=== PATIENT | male | born 1975 | race Caucasian/White ===

== ENCOUNTER 2017-01-06 14:24 | Emergency (ER) | payer MEDICAID, OTHER ==
[~2017-01-06] VITALS: Ht 165.1 cm; Wt 75.5 kg
[2017-01-06 14:27] VITALS: Ht 165.1 cm; Wt 75.5 kg
[2017-01-06] MEDS ORDERED: morphine 4 MG/ML VIAL IV STA (15:25)
[2017-01-06] MEDS ORDERED: ONDANSETRON 4 MG INJ IV STA (15:25)
[2017-01-06 15:56] VITALS: BP 113/98; PULSE 57; RESP 18
[2017-01-06 16:05] LABS: BASOPHILS % 0.2 % (0.0-2.0); EOSINOPHILS # 0.2 10^3/ul (0.0-0.5); EOSINOPHILS % 1.6 % (0.0-7.0); HEMATOCRIT 42.2 % (42.0-52.0); HEMOGLOBIN 14.7 g/dl (14.0-18.0); LYMPHOCYTES # 2.7 10^3/ul (0.8-2.9); MEAN CORPUSCULAR HEMOGLOBIN 32.3 pg (29.0-33.0); MEAN CORPUSCULAR HGB CONC 34.8 g/dl (32.0-37.0); MEAN CORPUSCULAR VOLUME 92.7 fl (82.0-101.0); MONOCYTE # 0.6 10^3/ul (0.3-0.9); MONOCYTES % 6.8 % (0.0-11.0); NEUTROPHILS % 62.1 % (39.0-77.0); PLATELET COUNT 208 10^3/UL (140-415); RED BLOOD COUNT 4.55 10^6/ul (4.70-6.10); RED CELL DISTRIBUTION WIDTH 13.1 % (11.5-14.5); WHITE BLOOD COUNT 9.1 10^3/ul (4.8-10.8)
[2017-01-06 16:23] LABS: ALBUMIN 4.3 g/dl (3.3-4.9); ALBUMIN/GLOBULIN RATIO 1.38; BILIRUBIN,INDIRECT 0.4 mg/dl (0-1.1); BILIRUBIN,TOTAL 0.4 mg/dl (0.2-1.3); CALCIUM 9.2 mg/dl (8.4-10.2); CREATININE 0.98 mg/dl (0.61-1.24); POTASSIUM 3.5 mmol/L (3.5-5.1); TOTAL PROTEIN 7.4 g/dl (6.1-8.1)
[2017-01-06 16:32] LABS: ADD UMIC YES; UR ASCORBIC ACID NEGATIVE (NEGATIVE); UR BILIRUBIN (Dip) NEGATIVE (NEGATIVE); UR BLOOD (Dip) NEGATIVE (NEGATIVE); UR CLARITY TURBID (CLEAR); UR COLOR YELLOW (YELLOW); UR GLUCOSE (Dip) NEGATIVE (NEGATIVE); UR KETONES (Dip) NEGATIVE (NEGATIVE); UR LEUKOCYTE ESTERASE (Dip) NEGATIVE Leu/ul (NEGATIVE); UR NITRITE (Dip) NEGATIVE (NEGATIVE); UR RBC 0 /HPF (0-5); UR SPECIFIC GRAVITY (Dip) 1.021 (1.003-1.030); UR TOTAL PROTEIN (Dip) NEGATIVE (NEGATIVE); UR UROBILINOGEN (Dip) 2+ mg/dL (NEGATIVE)
[2017-01-06] MEDS ORDERED: IBUP-1542 PO (18:39)
[2017-01-06] MEDS ORDERED: BISM262O23 PO (18:39)
[2017-01-06] MEDS ORDERED: ONDA8TAB14 PO (18:39)
--- NOTE | 2017-01-06 19:00 | ERD ---
ER Documentation Chief Complaint Date/Time DATE: 01/06/17 TIME: 18:56 Chief Complaint RLQ pain with n/v no diarrhea for 2 days HPI This 41-year-old male complains of pain on the right side of the abdomen with some vomiting and diarrhea for last 2 days. Denies fevers. Denies blood. Denies urinary complaints. Points to the right mid abdomen says this is worse on the lower aspect over the upper aspect. ROS All systems reviewed and are negative except as per history of present illness. Medications Home Meds Active Scripts Bismuth Subsalicylate* (Pepto-Bismol*) 262 Mg/15 Ml Oral.susp, 15 ML PO Q3H Y for DIARRHEA for 4 Days, ML Prov:KARLA SRINIVASAN MD 01/06/17 Ibuprofen* (Motrin*) 600 Mg Tab, 600 MG PO Q6, #15 TAB Prov:KARLA SRINIVASAN MD 01/06/17 Ondansetron (Ondansetron Odt) 8 Mg Tab.rapdis, 8 MG PO Q6H Y for NAUSEA AND/OR VOMITING, #8 TAB Prov:KARLA SRINIVASAN MD 01/06/17 Allergies Allergies: Coded Allergies: No Known Allergy (Unverified , 01/06/17) PMhx/Soc Medical and Surgical Hx: pt denies Medical Hx, pt denies Surgical Hx Hx Alcohol Use: Yes (occasionally) Hx Substance Use: No Hx Tobacco Use: No Smoking Status: Never smoker Physical Exam Vitals Vital Signs Date Time Temp Pulse Resp B/P Pulse Ox O2 Delivery O2 Flow Rate FiO2 01/06/17 15:56 57 18 113/98 98 Room Air 01/06/17 14:27 98.8 62 18 109/69 98 Physical Exam Const: []Alert, [id number]. Head: Atraumatic Eyes: Normal Conjunctiva ENT: Normal External Ears, Nose and Mouth. Neck: Full range of motion..~ No meningismus. Resp: Clear to auscultation bilaterally Cardio: Regular rate and rhythm, no murmurs Abd: Soft, Mild tenderness right mid abdomen. Possibly right lower tenderness as well. No Karimi sign. No rebound. non distended. Normal bowel sounds Skin: No petechiae or rashes Back: No midline or flank tenderness Ext: No cyanosis, or edema Neur: Awake and alert Psych: Normal Mood and Affect Result Diagram: 01/06/17 1548 01/06/17 1548 Results 24 hrs Laboratory Tests Test 01/06/17 15:48 White Blood Count 9.110^3/ul Red Blood Count 4.5510^6/ul Hemoglobin 14.7g/dl Hematocrit 42.2% Mean Corpuscular Volume 92.7fl Mean Corpuscular Hemoglobin 32.3pg Mean Corpuscular Hemoglobin Concent 34.8g/dl Red Cell Distribution Width 13.1% Platelet Count 15289^3/UL Mean Platelet Volume 10.0fl Neutrophils % 62.1% Lymphocytes % 29.0% Monocytes % 6.8% Eosinophils % 1.6% Basophils % 0.2% Nucleated Red Blood Cells % 0.0/100WBC Neutrophils # (Manual) 5.710^3/ul Lymphocytes # 2.710^3/ul Monocytes # 0.610^3/ul Eosinophils # 0.210^3/ul Basophils # 0.010^3/ul Nucleated Red Blood Cells # 0.010^3/ul Urine Color YELLOW Urine Clarity TURBID Urine pH 7.0 Urine Specific Kathleen 1.021 Urine Ketones NEGATIVEmg/dL Urine Nitrite NEGATIVEmg/dL Urine Bilirubin NEGATIVEmg/dL Urine Urobilinogen 2+mg/dL Urine Leukocyte Esterase NEGATIVELeu/ul Urine Microscopic RBC 0/HPF Urine Microscopic WBC 11/HPF Urine Hemoglobin NEGATIVEmg/dL Urine Glucose NEGATIVEmg/dL Urine Total Protein NEGATIVEmg/dl Sodium Level 140mmol/L Potassium Level 3.5mmol/L Chloride Level 104mmol/L Carbon Dioxide Level 29mmol/L Anion Gap 11 Blood Urea Nitrogen 13mg/dl Creatinine 0.98mg/dl Glucose Level 78mg/dl Calcium Level 9.2mg/dl Total Bilirubin 0.4mg/dl Direct Bilirubin 0.00mg/dl Indirect Bilirubin 0.4mg/dl Aspartate Amino Transf (AST/SGOT) 27IU/L Alanine Aminotransferase (ALT/SGPT) 57IU/L Alkaline Phosphatase 70IU/L Total Protein 7.4g/dl Albumin 4.3g/dl Globulin 3.10g/dl Albumin/Globulin Ratio 1.38 Lipase 70U/L Current Medications Medications (Trade) Dose Ordered Sig/Chandan Route PRN Reason Start Time Stop Time Status Last Admin Dose Admin Morphine Sulfate (morphine) 4 mg ONCE STAT IV 01/06/17 15:25 01/06/17 15:27 DC 01/06/17 15:43 Ondansetron HCl (Zofran Inj) 4 mg ONCE STAT IV 01/06/17 15:25 01/06/17 15:27 DC 01/06/17 15:43 Procedures/MDM Urine shows no acute abnormalities and CBC and CMP is normal. Patient is given morphine 4 mg IV and Zofran 4 mg IV. Given the uncertain cause a right lower quadrant abdominal pain she had abdomen pelvis were performed which was read as normal by the radiologist. Patient presents with vomiting diarrhea and right lower quadrant abdominal pain of uncertain etiology, possibly viral illness. Treated with Zofran ibuprofen and Pepto-Bismol at home and further observation and return precautions. The patient was stable with no new complaints during the ER course. Clinically, there is no current evidence to suggest meningitis, sepsis, acute abdomen, pneumonia, acute coronary syndrome, pulmonary embolism, or any other emergent condition appearing to require further evaluation or hospitalization. The patient should certainly return for any new or worsening symptoms per the aftercare instructions. They should otherwise follow-up with her primary care doctor for reevaluation this week. Departure Diagnosis: Primary Impression: Vomiting and diarrhea Additional Impression: Abdominal pain Abdominal location: right lower quadrant Qualified Code: R10.31 - Right lower quadrant abdominal pain Condition: Stable Patient Instructions: Abdominal Pain, Vomiting And Diarrhea, Nonspecific (Adult ) Additional Instructions: Examines normal hoy. Cheque otro vez con hogan doctor primario en el proximo oseguera or regresa para mas o nueva simptomas. probablamente un virus que dura 2-4 oseguera. cheque otro linda el proximo ramirez para mas simptomas- vomito, dolor, nancy, problemas con respirando, o con hogan doctor primario. KARLA SRINIVASAN MD Jan 06, 2017 19:00
--- NOTE | 2017-01-06 19:04 | RADRPT ---
PROCEDURE: CT ABDOMEN AND PELVIS WITHOUT CONTRAST: CLINICAL INDICATION: 41 years of age, male , right lower quadrant pain. COMPARISON: None available. TECHNIQUE: CT of the abdomen and pelvis was performed without intravenous contrast. Oral contrast wa s not administered prior to the examination. Coronal and sagittal reformatted images were obtained from the axial source images. Images were revi ewed on a high-resolution PACS workstation. Dose information: Based on a 32 cm phantom, the estimated radiation dose (CTDIvol mGy) for each seri es in this exam is 10.1. The estimated cumulative dose (DLP mGy-cm) is 571. One or more of the following dose reduction techniques were used: - Automated exposure control. - Adjustment of the mA and/or kV according to patient size. - Use of iterative reconstruction technique. FINDINGS: In the absence of intravenous contrast, the study constitutes a limited assessment of the solid orga ns, bowel and vessels. LUNG BASES: Linear atelectasis bilateral lung bases. ABDOMEN/PELVIS: Liver: Normal noncontrast appearance. Gallbladder: Contracted Bile ducts: No intrahepatic or extrahepatic biliary duct dilatation. Spleen: Normal noncontrast appearance. Pancreas: Normal noncontrast appearance. Adrenal glands: Normal noncontrast appearance. Kidneys and ureters: 1 cm hypodensity superior pole right kidney likely represents a cyst. Kidneys a re otherwise normal. Negative for urinary calculi or hydronephrosis. Aorta and IVC: Normal noncontrast appearance. Lymph nodes: Normal noncontrast appearance. Gastrointestinal tract: Stomach is moderately distended from a recent meal. Otherwise normal. Appendix: Normal Bladder: Normal noncontrast appearance. Pelvic Organs: Prostate gland and seminal vesicles are unremarkable. Peritoneal cavity: No free fluid or free intraperitoneal air. Abdominal wall: Normal noncontrast appearance. BONES: Musculoskeletal: Mild degenerative changes in lower lumbar spine. No suspicious bone lesions. IMPRESSION: Unremarkable CT of the abdomen, and pelvis without contrast. Cause for abdominal pain is not evident RPTAT: HCTS Physician Misael Date Time Electronically viewed and signed by Physician Misael on 01/06/2017 18:09 CS/
== END 2017-01-06 19:31 | disposition home or self-care (01) ==
LOC: FTE 14:24
DX: R11.10 Vomiting, unspecified (principal); R19.7 Diarrhea, unspecified
CPT/HCPCS: 36415; 74176; 80053; 81001; 83690; 85025; 96374; 96375; J2270; J2405; Z7502